=== PATIENT | male | born 1940 | race Caucasian/White ===

== ENCOUNTER → 2017-12-17 14:58 | Outpatient (CLI) | payer OTHER, SELFPAY ==
[2017-12-17 18:05] LABS: Hemoglobin A1c 7.9 % (4.2-6.3)
== END ==
PROVIDERS: Family Provider Family Medicine; PCP Family Medicine; Referring Provider Family Medicine; Visit Provider Family Medicine
DX: E11.9 Type 2 diabetes mellitus without complications (principal)
CPT/HCPCS: 36415; 83036

== ENCOUNTER → 2018-12-23 09:30 | Outpatient (CLI) | payer MEDICARE, SELFPAY ==
[2018-12-23 09:07] VITALS: BMI 34.2
[2018-12-23 13:33] LABS: AST(SGOT) 14 U/L (15-37); Alanine Aminotransfer ALT/SGPT 23 U/L (16-61); Albumin, Serum 3.8 g/dL (3.2-5.0); Alkaline Phosphatase 72 U/L (45-117); Anion Gap 7 (5-15); BUN 30 mg/dL (7-18); BUN/Creat Ratio 15.9 RATIO (10-20); Calcium,Total 9.2 mg/dL (8.5-10.1); Chloride 109 mmol/L (98-107); Cholesterol 197 mg/dL (200); Creatinine, Serum 1.89 mg/dL (0.70-1.30); EST Glomerular Filtration Rate 37 mL/min (>60); Est Glom Filt Rate - Afr Amer 44 mL/min (>60); Globulin 3.7 g/dL (2.2-4.2); Glucose 104 mg/dL (74-106); High Density Lipoprotein 40 mg/dL; Potassium 5.1 mmol/L (3.5-5.1); Protein, Total 7.5 g/dL (6.4-8.2); Sodium Level 144 mmol/L (136-145); Triglycerides 126 mg/dL; Very Low Density Lipoprotein 25 mg/dL (5-40)
== END ==
PROVIDERS: Family Provider Family Medicine; PCP Family Medicine; Visit Provider Family Medicine
DX: I10 Essential (primary) hypertension (principal); E78.5 Hyperlipidemia, unspecified
CPT/HCPCS: 36415; 80053; 80061

== ENCOUNTER → 2019-09-29 10:24 | Outpatient (CLI) | payer MEDICARE, SELFPAY ==
[2019-09-29 10:01] VITALS: BMI 34.2
[2019-09-29 13:04] LABS: ALB/GLOB Ratio 1.1 RATIO (0.9-2.4); AST(SGOT) 11 U/L (15-37); Alanine Aminotransfer ALT/SGPT 24 U/L (16-61); Albumin, Serum 3.7 g/dL (3.2-5.0); Alkaline Phosphatase 59 U/L (45-117); Anion Gap 6 (5-15); BUN 31 mg/dL (7-18); BUN/Creat Ratio 17.2 RATIO (10-20); Calcium,Total 8.8 mg/dL (8.5-10.1); Chloride 104 mmol/L (98-107); Cholesterol 171 mg/dL (200); EST Glomerular Filtration Rate 39 mL/min (>60); Est Glom Filt Rate - Afr Amer 47 mL/min (>60); Globulin 3.5 g/dL (2.2-4.2); Glucose 237 mg/dL (74-106); High Density Lipoprotein 40 mg/dL; Protein, Total 7.2 g/dL (6.4-8.2); Sodium Level 138 mmol/L (136-145); Triglycerides 171 mg/dL; Very Low Density Lipoprotein 34 mg/dL (5-40)
== END ==
PROVIDERS: PCP Family Medicine; Referring Provider Family Medicine; Visit Provider Family Medicine
DX: I10 Essential (primary) hypertension (principal); N19 Unspecified kidney failure
CPT/HCPCS: 36415; 80053; 80061

== ENCOUNTER → 2019-10-15 09:31 | Outpatient (CLI) | payer MEDICARE, SELFPAY ==
[2019-09-29 10:01] VITALS: BMI 34.2
--- NOTE | 2019-10-15 09:33 | ECHOCS_ITS ---
Reason For Study: CAD/ASHD Procedure This was a 2D Doppler, Color Flow transthoracic echocardiogram. The study was technically difficult. Contrast injection was performed. Exam performed in department. Left Ventricle Normal LV size. Mild segmental systolic dysfunction (see wall motion). The estimated ejection fraction is 40 %. Diastolic function is indeterminate. Lateral-Basal: Hypokinetic. Infero-Basal: Dyskinetic. Basal inferoseptal: Hypokinetic. Basal anteroseptal: Hypokinetic. Mid-Lateral : Hypokinetic. Mid-Posterior: Hypokinetic. Mid-Inferior: Akinetic. Mid-inferoseptal : Hypokinetic. Mid-anteroseptal : Hypokinetic. Anterior [place] : Hypokinetic. Right Ventricle Normal RV size. ICD or pacer leads identified within the right ventricle. Normal systolic function. Atria Normal left atrium. Normal right atrium. ICD or pacer leads identified within the right atrium. Bubble contrast study negative for right to left interatrial shunt. Mitral Valve There is no mitral annular calcification. Normal mitral valve. Trivial mitral valve insufficiency. Tricuspid Valve Normal tricuspid valve. Trivial tricuspid valve insufficiency. Unable to estimate RV systolic pressure/pulmonary artery pressure due to technically difficult study. Aortic Valve Trisinus/trileaflet aortic valve. Mild diffuse aortic valve thickening. Moderate focal aortic valve calcification. Aortic sclerosis, no stenosis. Trivial eccentric aortic valve insufficiency. Pulmonic Valve The pulmonic valve is not well visualized. Mild (1+) pulmonic valve insufficiency. Great Vessels Mildly dilated aortic root. Calcified aortic root. Pericardium/Pleural No pericardial effusion. Medication 22 gauge I.V. with prn adaptor inserted into right arm. Diluted definity 2ml given slow IV push to enhance endocardial definition. Performed a rapid injection of agitated mix of 9 cc saline and 1cc air to assess for atrial septal defect. MMode/2D Measurements & Calculations LVIDd: 3.2 cm IVSd: 1.7 cm LVOT diam: 2.1 cm LVIDs: 2.8 cm LVPWd: 1.2 cm FS: 12.8 % LVOT area: 3.6 cm2 Ao root diam: 4.5 cm LAV(MOD-sp4): 44.1 ml LA A4 area: 16.0 cm2 LA dimension: 4.5 cm RA A4 area: 11.2 cm2 Time Measurements MV dec time: 0.13 sec Doppler Measurements & Calculations MV E max vinay: 41.5 cm/sec Lat Peak E' Vinay: 7.0 cm/sec Med Peak E' Vinay: 3.7 cm/sec MV A max vinay: 76.6 cm/sec E/E' lat: 5.9 E/E' med: 11.3 MV E/A: 0.54 MV V2 max: 95.3 cm/sec MV P1/2t max vinay: 85.7 cm/sec Ao V2 max: 146.1 cm/sec MV max P.6 mmHg MV P1/2t: 86.4 msec Ao max P.5 mmHg MV V2 mean: 52.2 cm/sec MV dec slope: 290.7 cm/sec2 Ao V2 mean: 94.7 cm/sec MV mean P.3 mmHg MVA(P1/2t): 2.5 cm2 Ao mean P.2 mmHg MV V2 VTI: 27.2 cm Ao V2 VTI: 29.3 cm MVA(VTI): 2.8 cm2 TARIQ(I,D): 2.6 cm2 TARIQ(V,D): 2.6 cm2 AI max vinay: 364.0 cm/sec LV V1 max: 108.0 cm/sec SV(LVOT): 77.4 ml AI max P.1 mmHg LV V1 max P.1 mmHg LV V1 mean P.2 mmHg AI dec slope: 191.3 cm/sec2 LV V1 mean: 64.5 cm/sec AI P1/2t: 557.4 msec LV V1 VTI: 21.8 cm PA V2 max: 79.9 cm/sec Interpretation Summary The study was technically difficult. Contrast injection was performed. Mild segmental systolic dysfunction (see wall motion). The estimated ejection fraction is 40 %. Trivial mitral valve insufficiency. Trivial tricuspid valve insufficiency. Aortic sclerosis, no stenosis. Trivial eccentric aortic valve insufficiency. Mild (1+) pulmonic valve insufficiency. Mildly dilated aortic root. Calcified aortic root. Unable to estimate RV systolic pressure/pulmonary artery pressure due to technically difficult study. Diastolic function is indeterminate. Ordering Physician: Ramos Castillo Referring Physician: Ramos Csatillo Performed By: Demetrius Acosta RCS
== END ==
PROVIDERS: PCP Family Medicine; Referring Provider Family Medicine; Visit Provider Family Medicine
DX: I25.10 Atherosclerotic heart disease of native coronary artery without angina pectoris (principal); R06.00 Dyspnea, unspecified
CPT/HCPCS: 93306; Q9957; A4216; C8929

== ENCOUNTER → 2020-06-23 15:24 | Outpatient (CLI) | payer MEDICARE, SELFPAY ==
[2020-06-23 14:54] VITALS: BMI 35.9
--- NOTE | 2020-06-23 15:54 | RAD_ITS ---
INDICATION: dyspnea -- call Del Rene NP with results [id number] EXAMINATION/TECHNIQUE: X-RAY - XR Chest 2 Views COMPARISON: None. FINDINGS: Left-sided cardiac device. Median sternotomy wires present. Central pulmonary venous congestion. Tortuous and calcified thoracic aorta. Small right and trace left pleural effusions. Right basilar atelectasis. No acute osseous abnormalities. RAD/Chest PA and Lateral IMPRESSION: Central pulmonary venous congestion with small right and trace left pleural effusions. Cannot rule out superimposed infection in the right lung base. Electronically Signed: Mateo Bustamante MD at 17:02 EDT Tel , Service support ,
[2020-06-23 16:39] LABS: Absolute Lymphocyte Count 1.43 X10^3/uL (0.83-4.51); Absolute Neutrophil Count 4.3 X10^3/uL (2.0-7.7); Basophil# 0.06 X10^3/uL; Basophil% 0.9 % (0-1); Eosinophil# 0.14 X10^3/uL; Eosinophils% 2.1 % (0-5); Hematocrit 42.7 % (40-54); Lymphocyte # 1.43 X10^3/ul (4.0); Lymphocyte % 21.9 % (19-41); Mean Corp Hgb Conc 32.8 g/dL (32-36); Mean Corpuscular Hgb 31.7 pg (27.0-32.0); Mean Corpuscular Volume 96.6 fL (80-94); Mean Platelet Vol. 10.3 fl (6.2-12.0); Monocyte# 0.58 X10^3/uL; Monocyte% 8.9 % (0-10); NRBC Flagged by Analyzer 0 % (0-5); Neutrophil # 4.29 X10^3/uL (2.7-7.7); Neutrophil % 65.9 % (47-70); Platelet Count 207 K/mm3 (150-450); RBC Distribution Width CV 12.8 % (11.6-14.6); RBC Distribution Width SD 45.8 fl (35.1-43.9); Red Blood Count 4.42 M/mm3 (4.6-6.2); White Blood Count 6.5 K/mm3 (4.4-11.0)
[2020-06-23 17:03] LABS: AST(SGOT) 10 U/L (15-37); Alanine Aminotransfer ALT/SGPT 22 U/L (16-61); Albumin, Serum 3.4 g/dL (3.2-5.0); Alkaline Phosphatase 72 U/L (45-117); Anion Gap 4 (5-15); BUN 31 mg/dL (7-18); Chloride 104 mmol/L (98-107); Cholesterol 148 mg/dL (200); Creatinine, Serum 2.21 mg/dL (0.70-1.30); EST Glomerular Filtration Rate 30 mL/min (>60); Est Glom Filt Rate - Afr Amer 37 mL/min (>60); Globulin 3.5 g/dL (2.2-4.2); Glucose 254 mg/dL (74-106); High Density Lipoprotein 38 mg/dL; PSA,Total - Annual Screen 4.33 ng/mL (0.00-4.00); Potassium 4.7 mmol/L (3.5-5.1); Protein, Total 6.9 g/dL (6.4-8.2); Sodium Level 137 mmol/L (136-145); Thyroid Stim Hormone (TSH) 1.96 uIU/mL (0.358-3.74); Triglycerides 167 mg/dL; Very Low Density Lipoprotein 33 mg/dL (5-40)
[2020-06-23 18:36] LABS: BNP,B-Type NATRIURETIC PEPTIDE 773.4 pg/mL (0-100)
== END ==
LOC: BIMLAB 15:26 → RAD 15:49
PROVIDERS: PCP Family Medicine; Referring Provider Nurse Practitioner Family; Visit Provider Nurse Practitioner Family
DX: R06.00 Dyspnea, unspecified (principal); R06.01 Orthopnea; I10 Essential (primary) hypertension; E11.9 Type 2 diabetes mellitus without complications; E78.5 Hyperlipidemia, unspecified; N19 Unspecified kidney failure; Z12.5 Encounter for screening for malignant neoplasm of prostate
CPT/HCPCS: 36415; 71046; 80053; 80061; 83880; 84153; 84443; 85025; G0103

== ENCOUNTER → 2020-06-26 09:28 | Outpatient (CLI) | payer MEDICARE, SELFPAY ==
[2020-06-23 14:54] VITALS: BMI 35.9
[2020-06-26 12:39] LABS: Anion Gap 3 (5-15); BUN 33 mg/dL (7-18); BUN/Creat Ratio 15.1 RATIO (10-20); Calcium,Total 10.1 mg/dL (8.5-10.1); Chloride 105 mmol/L (98-107); Creatinine, Serum 2.18 mg/dL (0.70-1.30); EST Glomerular Filtration Rate 31 mL/min (>60); Est Glom Filt Rate - Afr Amer 37 mL/min (>60); Glucose 90 mg/dL (74-106); Sodium Level 140 mmol/L (136-145)
== END ==
PROVIDERS: PCP Family Medicine; Referring Provider Nurse Practitioner Family; Visit Provider Nurse Practitioner Family
DX: E11.9 Type 2 diabetes mellitus without complications (principal); E78.5 Hyperlipidemia, unspecified; I10 Essential (primary) hypertension; N19 Unspecified kidney failure; R06.01 Orthopnea
CPT/HCPCS: 36415; 80048; 82043; 82570

== ENCOUNTER → 2020-07-12 12:58 | Outpatient (CLI) | payer MEDICARE, SELFPAY ==
[2020-07-10 16:09] VITALS: BMI 34.4
--- NOTE | 2020-07-12 13:08 | ECHOCS_ITS ---
Reason For Study: CHF Procedure This was a 2D Doppler, Color Flow transthoracic echocardiogram. The study was technically difficult. Contrast injection was performed. Exam performed in department. Left Ventricle Normal LV size. Mild to moderate segmental systolic dysfunction (see wall motion). The estimated ejection fraction is 40 %. Infero-Basal: Dyskinetic. Basal inferoseptal: Hypokinetic. Basal anteroseptal: Hypokinetic. Mid-Anterior : Hypokinetic. Mid-Posterior: Hypokinetic. Mid-Inferior: Akinetic. Mid-inferoseptal : Hypokinetic. Mid-anteroseptal : Hypokinetic. Anterior [place] : Hypokinetic. Inferior [place] : Akinetic. Lateral [place] : Hypokinetic. Right Ventricle Normal RV size. ICD or pacer leads identified within the right ventricle. Normal systolic function. Atria The left atrium is moderately enlarged. Normal right atrium. ICD or pacer leads identified within the right atrium. No doppler evidence for ASD. Mitral Valve There is no mitral annular calcification. Anterior leaflet diffuse mitral valve thickening. Mild (1+) mitral valve insufficiency. Tricuspid Valve Normal tricuspid valve. Trivial tricuspid valve insufficiency. Unable to estimate RV systolic pressure/pulmonary artery pressure due to technically difficult study. Aortic Valve Trisinus/trileaflet aortic valve. Mild focal aortic valve calcification. Mild (1+) aortic valve insufficiency. Pulmonic Valve The pulmonic valve is not well visualized. Trivial pulmonic valve insufficiency. Great Vessels Borderline to mildly dilated aortic root. Pericardium/Pleural No pericardial effusion. Medication 22 gauge I.V. with prn adaptor inserted into right arm. Diluted definity 3ml given slow IV push to enhance endocardial definition. MMode/2D Measurements & Calculations LVIDd: 4.5 cm IVSd: 1.2 cm Ao root diam: 3.9 cm LVIDs: 4.0 cm LVPWd: 1.3 cm LA dimension: 4.2 cm FS: 11.3 % LAV(MOD-bp): 64.9 ml LA A4 area: 22.8 cm2 RA A4 area: 13.4 cm2 LAV(MOD-bp) Indexed: 30.0 ml/m2 LAV(MOD-sp2): 59.2 ml LAV(MOD-sp4): 68.5 ml Time Measurements MV dec time: 0.21 sec Doppler Measurements & Calculations MV E max vinay: 88.7 cm/sec Lat Peak E' Vinay: 9.2 cm/sec Med Peak E' Vinay: 3.0 cm/sec MV A max vinay: 63.3 cm/sec E/E' lat: 9.6 E/E' med: 29.3 MV E/A: 1.4 MV V2 max: 104.2 cm/sec MV P1/2t max vinay: 105.5 cm/sec Ao V2 max: 140.8 cm/sec MV max P.3 mmHg MV P1/2t: 80.3 msec Ao max P.9 mmHg MV V2 mean: 53.8 cm/sec MV dec slope: 384.5 cm/sec2 MV mean P.4 mmHg MV V2 VTI: 30.1 cm MVA(P1/2t): 2.7 cm2 AI max vinay: 313.8 cm/sec LV V1 max: 78.8 cm/sec PA V2 max: 89.9 cm/sec AI max P.4 mmHg LV V1 max P.5 mmHg AI dec slope: 129.7 cm/sec2 AI P1/2t: 709.0 msec PI end-d vinay: 108.1 cm/sec ECHO/Echo Complete W/ Contrast Interpretation Summary The study was technically difficult. Contrast injection was performed. Mild to moderate segmental systolic dysfunction (see wall motion). The estimated ejection fraction is 40 %. The left atrium is moderately enlarged. There is no mitral annular calcification. Anterior leaflet diffuse mitral valve thickening. Mild (1+) mitral valve insufficiency. Trivial tricuspid valve insufficiency. Mild focal aortic valve calcification. Trivial pulmonic valve insufficiency. Borderline to mildly dilated aortic root. Unable to estimate RV systolic pressure/pulmonary artery pressure due to techni abner difficult study. Transmitral diastolic flow velocities suggest diastolic dysfunction (pseudonorm al pattern). ICD or pacer leads identified within the right atrium ICD or pacer leads identified within the right ventricle. Ordering Physician: Lalito Riggins Referring Physician: Gui Castillo M.D. Performed By: Demetrius Acosta RCS
== END ==
PROVIDERS: PCP Family Medicine; Referring Provider Internal Medicine Cardiovascular Disease; Visit Provider Internal Medicine Cardiovascular Disease
DX: I50.9 Heart failure, unspecified (principal); I25.10 Atherosclerotic heart disease of native coronary artery without angina pectoris
CPT/HCPCS: 93306; Q9957; A4216; C8929

== ENCOUNTER → 2021-01-22 06:27 | Outpatient (CLI) | payer MEDICARE, SELFPAY ==
--- NOTE | 2021-01-22 09:26 | STRESSREP ---
Stress Test Report Date: 01-22-2021 Procedure: Pharmacologic stress nuclear imaging study Indications: Shortness of breath/dyspnea on exertion; CAD; CABG; CHF Consent: Per the patient Procedure: The patient underwent pharmacologic (Regadenoson 0.4mg ) evaluation with a peak heart rate of 95 beats per minute (68%predicted maximal heart rate) and a peak blood pressure of 168/92 mmHg. The baseline ECG demonstrated sinus rhythm. The peak pharmacologic ECG demonstrated no obvious ECG changes. There was a rare to occasional PVC and recovery. There was no complaint of chest discomfort during pharmacologic infusion or recovery. The examination was discontinued secondary to completion of protocol. Impression: 1. Pharmacologic (Regadenoson) evaluation 2. Peak pharmacologic ECG with no obvious ECG changes. 3. There was a rare to occasional PVC in recovery. 4. Nuclear images pending Myocardial perfusion imaging study: Technique: The patient was injected with 14.7 millicuries of technetium 99m Cardiolite and subsequently rest SPECT Cardiolite nuclear imaging was obtained in the horizontal long, vertical long, and short axis views. The patient underwent pharmacologic (Regadenoson) evaluation with a peak heart rate of 95 beats per minute (68% percent predicted maximal heart rate) and a peak blood pressure of 168/92 mmHg. The patient was injected with 44.8 millicuries of technetium 99m Cardiolite and subsequently stress SPECT Cardiolite nuclear imaging was obtained in the horizontal long, vertical long, and short axis views. A gated Cardiolite study at peak stress was obtained. Interpretation: Rest and stress SPECT Cardiolite nuclear imaging status post realignment, normalization, and attenuation correction demonstrate on the preattenuation correction images the appearance of diminished tracer uptake in portions of the basal inferior/inferoseptal segments at rest and stress without significant change and subsequently notation of diminished myocardial perfusion/tracer uptake in portions extending toward the mid inferior segments status post stress. Status post attenuation correction there appears to be notation of diminished myocardial perfusion/tracer uptake in portions of the basal towards mid inferior segments status post stress. There is diminished end systolic thickening and brightening in the aforementioned areas. The gated Cardiolite study demonstrates diminished myocardial thickening and inward wall motion in the aforementioned areas. The reported LVEF is 48%. Impression: 1. Rest and stress SPECT Cardiolite nuclear imaging demonstrate myocardial perfusion changes concerning for an area of possible previous myocardial injury/infarction involving portions of the basal towards mid inferior segments as well as concerning for an area of associated stress-induced myocardial ischemia in portions of the inferior segments. 2. The gated Cardiolite study reports an LVEF of 48%. This note was generated with [employer] software. It may contain incorrect words, spelling, and punctuation that were not noted in checking the note before signing.
== END ==
PROVIDERS: PCP Family Medicine; Referring Provider Nurse Practitioner Family; Visit Provider Nurse Practitioner Family
DX: I25.10 Atherosclerotic heart disease of native coronary artery without angina pectoris (principal); Z95.1 Presence of aortocoronary bypass graft; I10 Essential (primary) hypertension; Z98.61 Coronary angioplasty status; Z98.890 Other specified postprocedural states
CPT/HCPCS: 78452; 93017; A9500; A4216; J2785

== ENCOUNTER 2021-05-02 08:40 | Outpatient (CLI) | payer MEDICARE, SELFPAY ==
[2021-05-02 11:53] LABS: Anion Gap 5 (5-15); BUN 37 mg/dL (7-18); BUN/Creat Ratio 15.3 RATIO (10-20); Calcium,Total 9.6 mg/dL (8.5-10.1); Chloride 103 mmol/L (98-107); Creatinine, Serum 2.42 mg/dL (0.70-1.30); EST Glomerular Filtration Rate 27 mL/min (>60); Est Glom Filt Rate - Afr Amer 33 mL/min (>60); Glucose 190 mg/dL (74-106); Potassium 4.5 mmol/L (3.5-5.1); Sodium Level 135 mmol/L (136-145)
== END 2021-05-02 23:59 | disposition home or self-care (01) ==
LOC: LAB 08:41
PROVIDERS: PCP Family Medicine; Referring Provider Family Medicine; Visit Provider Family Medicine
DX: I50.9 Heart failure, unspecified (principal)
CPT/HCPCS: 36415; 80048

== ENCOUNTER 2021-05-14 08:14 | Outpatient (CLI) | payer MEDICARE, SELFPAY ==
[2021-05-14 09:06] LABS: BUN 41 mg/dL (7-18); Creatinine, Serum 2.48 mg/dL (0.70-1.30); Glucose 179 mg/dL (74-106)
[2021-05-14 09:07] LABS: Anion Gap 6 (5-15); BUN/Creat Ratio 16.5 RATIO (10-20); Calcium,Total 10.1 mg/dL (8.5-10.1); Chloride 103 mmol/L (98-107); EST Glomerular Filtration Rate 27 mL/min (>60); Est Glom Filt Rate - Afr Amer 32 mL/min (>60); Potassium 4.5 mmol/L (3.5-5.1); Sodium Level 137 mmol/L (136-145)
== END 2021-05-14 23:59 | disposition home or self-care (01) ==
LOC: LAB 08:16
PROVIDERS: PCP Family Medicine; Referring Provider Family Medicine; Visit Provider Family Medicine
DX: N18.30 Chronic kidney disease, stage 3 unspecified (principal)
CPT/HCPCS: 36415; 80048

== ENCOUNTER 2021-06-13 08:11 | Outpatient (CLI) | payer MEDICARE, SELFPAY ==
[2021-06-13 09:05] LABS: AST(SGOT) 11 U/L (15-37); Alanine Aminotransfer ALT/SGPT 20 U/L (16-61); Albumin, Serum 3.9 g/dL (3.2-5.0); Alkaline Phosphatase 80 U/L (45-117); Bilirubin, Direct 0.15 mg/dL (0.00-0.30); Cholesterol 203 mg/dL (200); Globulin 3.6 g/dL (2.2-4.2); High Density Lipoprotein 39 mg/dL; Protein, Total 7.5 g/dL (6.4-8.2); Triglycerides 155 mg/dL; Very Low Density Lipoprotein 31 mg/dL (5-40)
== END 2021-06-13 23:59 | disposition home or self-care (01) ==
LOC: LAB 08:13
PROVIDERS: PCP Family Medicine; Referring Provider Internal Medicine Cardiovascular Disease; Visit Provider Internal Medicine Cardiovascular Disease
DX: E78.00 Pure hypercholesterolemia, unspecified (principal)
CPT/HCPCS: 36415; 80061; 80076

== ENCOUNTER → 2021-11-21 | Outpatient (CLI) | payer MEDICARE, SELFPAY ==
[2021-11-21 15:55] LABS: Hematocrit 39.8 % (40-54); Hemoglobin 13.6 g/dL (13.0-16.5); Mean Corp Hgb Conc 34.2 g/dL (32-36); Mean Corpuscular Hgb 32.2 pg (27.0-32.0); Mean Corpuscular Volume 94.1 fL (80-94); Mean Platelet Vol. 9.8 fl (6.2-12.0); Platelet Count 169 K/mm3 (150-450); RBC Distribution Width CV 12.2 % (11.6-14.6); RBC Distribution Width SD 42.4 fl (35.1-43.9); Red Blood Count 4.23 M/mm3 (4.6-6.2); White Blood Count 7.2 K/mm3 (4.4-11.0)
[2021-11-21 16:00] LABS: Protein, Urine (Random) 66.1 mg/dL (<11.9); Protein:Creat Ratio 1015 mg/g CRE (0-200)
[2021-11-21 16:13] LABS: Vitamin D,25 Hydroxy 31.8 ng/mL
[2021-11-21 16:14] LABS: Albumin, Serum 3.7 g/dL (3.2-5.0); BUN 38 mg/dL (7-18); Calcium,Total 9.7 mg/dL (8.5-10.1); Chloride 102 mmol/L (98-107); Creatinine, Serum 3.16 mg/dL (0.70-1.30); EST Glomerular Filtration Rate 20 mL/min (>60); Est Glom Filt Rate - Afr Amer 24 mL/min (>60); Glucose 260 mg/dL (74-106); Phosphorus 3.3 mg/dL (2.5-4.9); Sodium Level 137 mmol/L (136-145)
[2021-11-22 09:01] LABS: PTHIN 126.6 pg/mL (18.4-80.1)
[2021-11-23 16:09] LABS: PROEL- A/G Ratio 1.3 (0.7-1.7); PROEL- Albumin 3.7 g/dL (2.9-4.4); PROEL- Alpha-1 Globulin 0.2 g/dL (0.0-0.4); PROEL- Alpha-2 Globulin 0.8 g/dL (0.4-1.0); PROEL- Beta Globulin 0.9 g/dL (0.7-1.3); PROEL- Gamma Globulin 0.9 g/dL (0.4-1.8); PROEL- Globulin, Total 2.8 g/dL (2.2-3.9); PROEL- TOTAL PROTEIN 6.5 g/dL (6.0-8.5)
== END | disposition home or self-care (01) ==
LOC: LAB 15:14
PROVIDERS: PCP Family Medicine; Referring Provider Internal Medicine Nephrology; Visit Provider Internal Medicine Nephrology
DX: N18.31 Chronic kidney disease, stage 3a (principal)
CPT/HCPCS: 36415; 80069; 82306; 82570; 83970; 84156; 84165; 85027

== ENCOUNTER → 2021-12-18 | Outpatient (CLI) | payer MEDICARE, SELFPAY ==
--- NOTE | 2021-12-18 15:44 | US_ITS ---
STUDY: RENAL ULTRASOUND - COMPLETE REASON FOR EXAM: Male, 81 years old. CHRONIC KIDNEY DISEASE 3A TECHNIQUE: Ultrasound evaluation of the kidneys was performed with real-time and static wolfe-scale imaging. COMPARISON: None. FINDINGS: RIGHT KIDNEY: Normal location of the right kidney, which is normal in size. The right kidney measures 10.2 x 4.5 x 5.9 cm. There is a normal cortex of the right kidney. The renal cortex measures 1.8 cm. 6.5 x 4.4 x 5.2 cm cyst. Other cysts measure up to 2 cm. There are no right renal calculi. There is no right hydronephrosis. DISTAL RIGHT URETER: There is non-visualization of the distal right ureter. There is no demonstrated right ureterovesical junction calculus. There is a visualized right ureteral jet. LEFT KIDNEY: Normal location of the left kidney, which is normal in size. The left kidney measures 12.3 x 4.5 x 4.9 cm. There is a normal cortex of the left kidney. The renal cortex measures 1.8 cm. 7.6 x 5.1 x 4.8 cm. Other cysts measure up to 3.2 cm. There are no left renal calculi. There is no left hydronephrosis. DISTAL LEFT URETER: There is non-visualization of the distal left ureter. There is no demonstrated left ureterovesical junction calculus. There is a visualized left ureteral jet. BLADDER: The distended urinary bladder has a volume of 247 ml. The empty urinary bladder has a volume of 64 ml. There are cystic structures in or along the posterior urinary bladder wall. Mild urinary bladder wall trabeculation. There is no demonstrated mass within the urinary bladder. There are no demonstrated bladder calculi. US/Kidney and Bladder IMPRESSION: 1. Polycystic kidneys. 2. Incomplete urinary bladder emptying. Electronically Signed: Lalito Kennedy MD at 6:53 EDT ,
== END | disposition home or self-care (01) ==
LOC: US 15:42
PROVIDERS: PCP Family Medicine; Referring Provider Internal Medicine Nephrology; Visit Provider Internal Medicine Nephrology
DX: N18.31 Chronic kidney disease, stage 3a (principal)
CPT/HCPCS: 76770

== ENCOUNTER → 2022-01-11 | Outpatient (CLI) | payer MEDICARE, SELFPAY ==
[2022-01-11 14:23] LABS: Anion Gap 5 (5-15); BUN 36 mg/dL (7-18); BUN/Creat Ratio 13.8 RATIO (10-20); Calcium,Total 9.2 mg/dL (8.5-10.1); Chloride 102 mmol/L (98-107); EST Glomerular Filtration Rate 25 mL/min (>60); Est Glom Filt Rate - Afr Amer 30 mL/min (>60); Glucose 277 mg/dL (74-106); Potassium 4.9 mmol/L (3.5-5.1); Sodium Level 135 mmol/L (136-145)
== END | disposition home or self-care (01) ==
LOC: LAB 13:45
PROVIDERS: PCP Family Medicine; Referring Provider Internal Medicine Nephrology; Visit Provider Internal Medicine Nephrology
DX: N18.4 Chronic kidney disease, stage 4 (severe) (principal)
CPT/HCPCS: 36415; 80048

== ENCOUNTER → 2022-01-12 | Outpatient (CLI) | payer MEDICARE, SELFPAY ==
[2022-01-12 09:45] LABS: AST(SGOT) 14 U/L (15-37); Alanine Aminotransfer ALT/SGPT 22 U/L (16-61); Albumin, Serum 3.7 g/dL (3.2-5.0); Alkaline Phosphatase 74 U/L (45-117); Bilirubin, Direct 0.18 mg/dL (0.00-0.30); Cholesterol 113 mg/dL (200); Globulin 3.5 g/dL (2.2-4.2); High Density Lipoprotein 34 mg/dL; Protein, Total 7.2 g/dL (6.4-8.2); Triglycerides 119 mg/dL; Very Low Density Lipoprotein 24 mg/dL (5-40)
== END | disposition home or self-care (01) ==
LOC: LAB 08:57
PROVIDERS: PCP Family Medicine; Referring Provider Internal Medicine Cardiovascular Disease; Visit Provider Internal Medicine Cardiovascular Disease
DX: I25.10 Atherosclerotic heart disease of native coronary artery without angina pectoris (principal); E78.2 Mixed hyperlipidemia
CPT/HCPCS: 36415; 80061; 80076